=== PATIENT | male | born 1955 | race Caucasian/White ===

== ENCOUNTER 2020-05-02 10:20 | Day surgery (SDC) | payer OTHER | END 2020-05-02 20:15 | disposition home or self-care (01) | LOC: CIR.AMB 10:20 | PROVIDERS: ATTEND Urology | DX: C67.5 Malignant neoplasm of bladder neck (principal); Z20.828 Contact with and (suspected) exposure to other viral communicable diseases; D09.0 Carcinoma in situ of bladder ==

== ENCOUNTER 2021-11-29 09:01 | Outpatient (CLI) | payer OTHER | END 2021-11-29 09:02 | disposition home or self-care (01) | LOC: MRI 09:01 | PROVIDERS: ATTEND Urology | DX: C67.9 Malignant neoplasm of bladder, unspecified (principal) | CPT/HCPCS: 72197; 74183; Q9965 ==

== ENCOUNTER 2022-01-02 08:10 | Outpatient (CLI) | payer OTHER | END 2022-01-02 08:20 | disposition home or self-care (01) | LOC: RX STUDY 08:10 | DX: I10 Essential (primary) hypertension (principal); C15.9 Malignant neoplasm of esophagus, unspecified; E03.9 Hypothyroidism, unspecified ==

== ENCOUNTER 2022-01-10 10:29 | Outpatient (CLI) | payer OTHER | END 2022-01-10 10:32 | disposition home or self-care (01) | LOC: NUCLEAR 10:29 | DX: M85.89 Other specified disorders of bone density and structure, multiple sites (principal) ==

== ENCOUNTER 2022-12-31 13:01 | Outpatient (CLI) | payer OTHER | END 2022-12-31 13:05 | disposition home or self-care (01) | LOC: LAB 13:01 | PROVIDERS: ATTEND Radiology Diagnostic Radiology | DX: R31.1 Benign essential microscopic hematuria (principal) ==

== ENCOUNTER 2023-01-07 07:25 | Outpatient (CLI) | payer OTHER | END 2023-01-07 07:36 | disposition home or self-care (01) | LOC: MRI 07:25 | PROVIDERS: ATTEND Urology | DX: C67.9 Malignant neoplasm of bladder, unspecified (principal); R31.1 Benign essential microscopic hematuria | CPT/HCPCS: 72197; 74183; Q9965 ==